=== PATIENT | female | born 1985 | race Caucasian/White ===

== ENCOUNTER 2016-05-12 00:12 | Emergency (ER) | payer MEDICAID ==
[~2016-05-12] VITALS: Ht 160 cm; Wt 51.0 kg
[~2016-05-12 00:12] MED LIST: DOXY100T PO; GABA300C3 PO; ULTR50TA PO
[2016-05-12 00:14] VITALS: BP 136/95; PULSE 138; RESP 20; TEMP 97.8; O2SAT 97
[2016-05-12] MEDS ORDERED: SODIUM CHLORIDE 0.9% FLUSH 5 ML FLUSH IVF PRN (01:15)
[2016-05-12] MEDS ORDERED: MORPHINE SULFATE 8 MG/ML INJ IV PUSH ONE (01:15)
[2016-05-12] MEDS ORDERED: TRAM50TA PO (01:27)
[2016-05-12] MEDS ORDERED: ALPR.5 PO (01:27)
[2016-05-12] MEDS ORDERED: GABA300C5 PO (01:27)
[2016-05-12 01:47] LABS: AUTOMATED NEUTROPHIL # 2.8 TH/MM3 (1.8-7.7); BASOPHIL # 0.1 TH/MM3 (0-0.2); EOSINOPHIL # 0.1 TH/MM3 (0-0.4); HEMATOCRIT 43.6 % (35.0-46.0); HEMO FLAGS DIFF FINAL; LYMPH % 41.7 % (9.0-44.0); LYMPHOCYTE # 2.7 TH/MM3 (1.0-4.8); MEAN CORPUSCULAR HEMOGLOBIN 30.9 PG (27.0-34.0); MEAN CORPUSCULAR HGB CONC 34.4 % (32.0-36.0); MONO % 11.9 % (0.0-8.0); NEUT % 43.4 % (16.0-70.0); PLATELET COUNT 148 TH/MM3 (150-450); RED BLOOD COUNT 4.85 MIL/MM3 (4.00-5.30); RED CELL DISTRIBUTION WIDTH 14.3 % (11.6-17.2); WHITE BLOOD COUNT 6.5 TH/MM3 (4.0-11.0)
[2016-05-12] MEDS ORDERED: LORazepam 2 MG/ML VIAL IV PUSH ONE (02:00)
[2016-05-12] MEDS ORDERED: SODIUM CHLOR 0.9% 1000 ML INJ 1,000 ML IV ONE ×2 (02:00)
--- NOTE | 2016-05-12 02:00 | PD ---
HPI Chief Complaint: Abdominal Pain Time Seen by Provider: 00:53 Travel History International Travel<30 days: No Contact w/Intl Traveler<30days: No Traveled to known affect area: No History of Present Illness HPI The patient is 31 years old and arrives here stating "my liver is shutting down. " She drinks at least 12 drink equivalents nightly. She has been doing this for at least past week and a half or so. She has generalized moderately severe abdominal pain. The onset has been gradual. She's had no fever. Appetite is decreased. In addition she states that she has not slept in a few days. PFSH Past Medical History Hx Anticoagulant Therapy: No Anxiety: Yes Depression: Yes Cancer: Yes (CERVICAL) Cardiovascular Problems: Yes Chemotherapy: No Cerebrovascular Accident: No Diabetes: No Dialysis: No (RESOLVED) Diminished Hearing: No Genitourinary: No Hepatitis: Yes Musculoskeletal: No Neurologic: No Psychiatric: Yes Respiratory: Yes (POST TRACH) Immunizations Current: Yes Renal Failure: No (RESOLVED) ?: Not LMP: 05/09/16 : 1 Para: 1 Past Surgical History Pacemaker: No Other Surgery: Yes (BENIGN CERVICAL CANCER, HX TRACH JUNE 2014, HX OF PEG TUBE, JUNE 22) Social History Alcohol Use: Yes (EXCESSIVELY FOR THE PAST MONTH) Tobacco Use: Yes (2 PPD) Substance Use: No (DENIES) Allergies-Medications (Allergen,Severity, Reaction): Coded Allergies: *MDRO Multi-Drug Resistant Organism (Unverified Adverse Reaction, Unknown , 05/12/16) MDR Pseudomonas and ESBL+ Klebsiella (KPC) in sputum 07/2014. ESBL+ Klebsiella (KPC) urine 06/2014. Reported Meds & Prescriptions Reported Meds & Active Scripts Active Reported Gabapentin 300 Mg Cap 300 Mg PO TID Tramadol (Tramadol HCl) 50 Mg Tab 50 Mg PO Q6H PRN Xanax (Alprazolam) 0.5 Mg Tab 0.5 Mg PO Q8H PRN Review of Systems Except as stated in HPI: all other systems reviewed are Neg Physical Exam Narrative GENERAL: Pleasant 31-year-old female no acute distress SKIN: Warm and dry. HEAD: Atraumatic. Normocephalic. EYES: Pupils equal and round. No scleral icterus. No injection or drainage. ENT: No nasal bleeding or discharge. Mucous membranes pink and moist. NECK: Trachea midline. No JVD. CARDIOVASCULAR: Tachycardia. Regular rhythm. RESPIRATORY: No accessory muscle use. Clear to auscultation. Breath sounds equal bilaterally. GASTROINTESTINAL: Soft. No focal tenderness. MUSCULOSKELETAL: No obvious deformities. No clubbing. No cyanosis. No edema. NEUROLOGICAL: Awake and alert. No obvious cranial nerve deficits. Motor grossly within normal limits. Normal speech. PSYCHIATRIC: Appropriate mood and affect; insight and judgment normal. Data Data Last Documented VS Vital Signs Date Time Temp Pulse Resp B/P Pulse Ox O2 Delivery O2 Flow Rate FiO2 05/12/16 00:14 97.8 138 20 136/95 97 Room Air Orders Complete Blood Count With Diff (05/12/16 01:12) Comprehensive Metabolic Panel (05/12/16 01:12) Lipase (05/12/16 01:12) Lactic Acid (05/12/16 01:12) Iv Access Insert/Monitor (05/12/16 01:12) Ecg Monitoring (05/12/16 01:12) Oximetry (05/12/16 01:12) Sodium Chloride 0.9% Flush (Ns Flush) (05/12/16 01:15) Morphine Inj (Morphine Inj) (05/12/16 01:15) Drug Screen, Random Urine (05/12/16 01:12) Alcohol (Ethanol) (05/12/16 01:12) Sodium Chlor 0.9% 1000 Ml Inj (Ns 1000 M (05/12/16 02:00) Sodium Chlor 0.9% 1000 Ml Inj (Ns 1000 M (05/12/16 02:00) Lorazepam Inj (Ativan Inj) (05/12/16 02:00) Ed Urine Pregnancytest Poc (05/12/16 02:45) Labs Laboratory Tests Test 05/12/16 05/12/16 01:32 01:40 White Blood Count 6.5 TH/MM3 Red Blood Count 4.85 MIL/MM3 Hemoglobin 15.0 GM/DL Hematocrit 43.6 % Mean Corpuscular Volume 90.0 FL Mean Corpuscular Hemoglobin 30.9 PG Mean Corpuscular Hemoglobin 34.4 % Concent Red Cell Distribution Width 14.3 % Platelet Count 148 TH/MM3 Mean Platelet Volume 7.4 FL Neutrophils (%) (Auto) 43.4 % Lymphocytes (%) (Auto) 41.7 % Monocytes (%) (Auto) 11.9 % Eosinophils (%) (Auto) 2.0 % Basophils (%) (Auto) 1.0 % Neutrophils # (Auto) 2.8 TH/MM3 Lymphocytes # (Auto) 2.7 TH/MM3 Monocytes # (Auto) 0.8 TH/MM3 Eosinophils # (Auto) 0.1 TH/MM3 Basophils # (Auto) 0.1 TH/MM3 CBC Comment DIFF FINAL Differential Comment Sodium Level 141 MEQ/L Potassium Level 3.9 MEQ/L Chloride Level 104 MEQ/L Carbon Dioxide Level 25.5 MEQ/L Anion Gap 12 MEQ/L Blood Urea Nitrogen 4 MG/DL Creatinine 0.59 MG/DL Estimat Glomerular Filtration 120 ML/MIN Rate Random Glucose 78 MG/DL Lactic Acid Level 1.8 mmol/L Calcium Level 8.5 MG/DL Total Bilirubin 0.5 MG/DL Aspartate Amino Transf 63 U/L (AST/SGOT) Alanine Aminotransferase 34 U/L (ALT/SGPT) Alkaline Phosphatase 58 U/L Total Protein 7.4 GM/DL Albumin 3.8 GM/DL Lipase 261 U/L Ethyl Alcohol Level 284 MG/DL Urine Opiates Screen NEG Urine Barbiturates Screen NEG Urine Amphetamines Screen NEG Urine Benzodiazepines Screen NEG Urine Cocaine Screen NEG Urine Cannabinoids Screen NEG MDM Medical Decision Making Medical Screen Exam Complete: Yes Emergency Medical Condition: Yes Medical Record Reviewed: Yes Differential Diagnosis Constipation, Gastritis, Acute Cholecystitis, Biliary Colic, Pancreatitis, BUENO , Hepatitis, Bowel Obstruction, Cystitis, Mesenteric Ischemia, AAA, Appendicitis , Renal Stone/Hydronephrosis, GERD, perforated viscous Narrative Course CBC & BMP Diagram 05/12/16 01:32 LFTs normal Lactic acid 1.8 Lipase 261 Toxicology negative Alcohol 284 Patient has no significant laboratory abnormality. Her heart rate has improved to the 80s. Upon reassessment at 2:48 AM the patient is resting comfortably and feels better, is alert and in no distress. The patients results and examination findings were discussed. The repeat examination is unremarkable and benign. The history, exam, diagnostic testing, and current condition do not suggest any significant pathology to warrant further testing, continued ED treatment, admission, or surgical evaluation at this point. The vital signs have been stable. The patient does not have uncontrollable pain, intractable vomiting, or other significant symptoms. The patient's condition is stable and appropriate for discharge. The patient will pursue further outpatient evaluation with a primary care physician or other designated or consulting physician as indicated in the discharge instructions. The patient expressed understanding and was agreeable with this plan. Diagnosis Primary Impression: Abdominal pain Qualified Code: R10.9 - Abdominal pain, unspecified location Additional Impression: Alcohol abuse Referrals: Deniz Guzman MD 2 days Additional Instructions: You have a choice when it comes to health care, and we are glad that you chose [facility]. Hopefully, we have met your expectations on today's visit. You are welcome to return to [facility] at any time, as we are committed to meeting the health care needs of our community. Med/Other Pt SpecificInfo: No Change to Meds Disposition: 01 DISCHARGE HOME Condition: Mateo Young MD May 12, 2016 02:00
[2016-05-12 02:05] LABS: ANION GAP 12 MEQ/L (5-15); AST (GOT) 63 U/L (15-37); BICARBONATE 25.5 MEQ/L (21.0-32.0); BLOOD UREA NITROGEN 4 MG/DL (7-18); CHLORIDE 104 MEQ/L (98-107); GLOMERULAR FILTRATION RATE 120 ML/MIN (>89); POTASSIUM 3.9 MEQ/L (3.5-5.1); SODIUM (NA) 141 MEQ/L (136-145)
[2016-05-12 02:08] LABS: ALKALINE PHOSPHATASE 58 U/L (45-117); ALT (GPT) 34 U/L (10-53); TOTAL BILIRUBIN ADULT 0.5 MG/DL (0.2-1.0)
[2016-05-12 02:19] LABS: AMPHETAMINE, URINE NEG (NEG); BARBITURATES, URINE NEG (NEG); COCAINE, URINE NEG (NEG)
== END 2016-05-12 03:21 | disposition home or self-care (01) ==
LOC: NEPC 00:12
DX: R10.9 Unspecified abdominal pain (principal); F10.10 Alcohol abuse, uncomplicated; K75.9 Inflammatory liver disease, unspecified; F17.200 Nicotine dependence, unspecified, uncomplicated; Z85.41 Personal history of malignant neoplasm of cervix uteri; Z86.79 Personal history of other diseases of the circulatory system; Z86.59 Personal history of other mental and behavioral disorders; Z87.09 Personal history of other diseases of the respiratory system
CPT/HCPCS: 80053; 80307; 80320; 83605; 83690; 85025; 96374; 99284; J2270; J7030

== ENCOUNTER 2017-05-11 19:12 | Emergency (ER) | payer SELFPAY ==
[2017-05-11] VITALS (7 sets, daily range): BP systolic 117–136; BP diastolic 72–80; PULSE 68–84; RESP 16–20; TEMP 98.3–98.4; O2SAT 100
[~2017-05-11 19:12] MED LIST changes: +ALPR.5 PO; -DOXY100T PO; -GABA300C3 PO; +GABA300C5 PO; +TRAM50TA PO; -ULTR50TA PO
[2017-05-11] MEDS ORDERED: SODIUM CHLOR 0.9% 1000 ML INJ 1,000 ML IV SCH (19:36)
--- NOTE | 2017-05-11 19:41 | PD ---
HPI Chief Complaint: Alcohol/Drug Intoxication Time Seen by Provider: 19:36 Travel History International Travel<30 days: No Contact w/Intl Traveler<30days: No Traveled to known affect area: No History of Present Illness HPI The patient is a 32-year-old female alcoholic that was on a binge drinking for about a week but her last alcohol was about 3 days ago. She was in long-term. She has multiple complaints the worst ones being anxiety and generalized myalgias. The vomiting has subsided several days ago. She states she is still nauseated. She does have a history of pancreatitis. She complains of sharp, pleuritic chest pain. She does smoke one pack a day. PFSH Past Medical History Hx Anticoagulant Therapy: No Anxiety: Yes Depression: Yes Cancer: Yes (CERVICAL) Cardiovascular Problems: Yes Chemotherapy: No Cerebrovascular Accident: No Diabetes: No Dialysis: No (RESOLVED) Diminished Hearing: No Genitourinary: No Hepatitis: Yes Musculoskeletal: No Neurologic: No Psychiatric: Yes Respiratory: Yes (POST TRACH) Immunizations Current: Yes Renal Failure: No (RESOLVED) Tetanus Vaccination: Unknown Influenza Vaccination: No ?: Not LMP: 05/08/17 : 1 Para: 1 Past Surgical History Pacemaker: No Other Surgery: Yes (BENIGN CERVICAL CANCER, HX TRACH JUNE 2014, HX OF PEG TUBE, JUNE 22) Social History Alcohol Use: Yes ( states relapsed went to long-term for 2 days out today 05/11/17) Tobacco Use: Yes (1 PPD) Substance Use: No (DENIES) Allergies-Medications (Allergen,Severity, Reaction): Coded Allergies: *MDRO Multi-Drug Resistant Organism (Unverified Adverse Reaction, Unknown , 05/11/17) MDR Pseudomonas and ESBL+ Klebsiella (KPC) in sputum 07/2014. ESBL+ Klebsiella (KPC) urine 06/2014. Reported Meds & Prescriptions Reported Meds & Active Scripts Active Reported Gabapentin 300 Mg Cap 300 Mg PO TID Tramadol (Tramadol HCl) 50 Mg Tab 50 Mg PO Q6H PRN Xanax (Alprazolam) 0.5 Mg Tab 0.5 Mg PO Q8H PRN Review of Systems Except as stated in HPI: all other systems reviewed are Neg Physical Exam Narrative GENERAL: The patient is alert, oriented 3 in minimal apparent distress except for her anxiety and myalgias. Her vital signs are normal. SKIN: Focused skin assessment warm/dry. HEAD: Atraumatic. Normocephalic. EYES: Pupils equal and round. No scleral icterus. No injection or drainage. ENT: No nasal bleeding or discharge. Mucous membranes pink and moist. NECK: Trachea midline. No JVD. CARDIOVASCULAR: Regular rate and rhythm. No murmur appreciated. RESPIRATORY: No accessory muscle use. Clear to auscultation. Breath sounds equal bilaterally. GASTROINTESTINAL: Abdomen soft, non-tender, nondistended. Hepatic and splenic margins not palpable. MUSCULOSKELETAL: No obvious deformities. No clubbing. No cyanosis. No edema. NEUROLOGICAL: Awake and alert. No obvious cranial nerve deficits. Motor grossly within normal limits. Normal speech. PSYCHIATRIC: The patient appears anxious; insight and judgment normal. Data Data Last Documented VS Vital Signs Date Time Temp Pulse Resp B/P (MAP) Pulse Ox O2 Delivery O2 Flow Rate FiO2 05/11/17 20:20 16 05/11/17 19:18 98.3 84 136/72 (93) 100 Orders Orders Complete Blood Count With Diff (05/11/17 19:36) Comprehensive Metabolic Panel (05/11/17 19:36) Lipase (05/11/17 19:36) Urinalysis - C+S If Indicated (05/11/17 19:36) Iv Access Insert/Monitor (05/11/17 19:36) Ecg Monitoring (05/11/17 19:36) Oximetry (05/11/17 19:36) Sodium Chlor 0.9% 1000 Ml Inj (Ns 1000 M (05/11/17 19:36) Sodium Chloride 0.9% Flush (Ns Flush) (05/11/17 19:45) Ed Urine Pregnancytest Poc (05/11/17 19:36) Thiamine Inj (Thiamine Inj) (05/11/17 19:45) Magnesium (Mg) (05/11/17 19:36) Ondansetron Inj (Zofran Inj) (05/11/17 19:45) Ketorolac Inj (Toradol Inj) (05/11/17 20:00) Labs Laboratory Tests Test 05/11/17 19:47 05/11/17 20:00 White Blood Count 8.6 TH/MM3 Red Blood Count 4.50 MIL/MM3 Hemoglobin 14.1 GM/DL Hematocrit 41.3 % Mean Corpuscular Volume 91.6 FL Mean Corpuscular Hemoglobin 31.4 PG Mean Corpuscular Hemoglobin Concent 34.2 % Red Cell Distribution Width 13.3 % Platelet Count 251 TH/MM3 Mean Platelet Volume 7.6 FL Neutrophils (%) (Auto) 54.1 % Lymphocytes (%) (Auto) 37.0 % Monocytes (%) (Auto) 6.3 % Eosinophils (%) (Auto) 1.8 % Basophils (%) (Auto) 0.8 % Neutrophils # (Auto) 4.6 TH/MM3 Lymphocytes # (Auto) 3.2 TH/MM3 Monocytes # (Auto) 0.5 TH/MM3 Eosinophils # (Auto) 0.2 TH/MM3 Basophils # (Auto) 0.1 TH/MM3 CBC Comment DIFF FINAL Differential Comment Blood Urea Nitrogen 9 MG/DL Creatinine 0.69 MG/DL Random Glucose 99 MG/DL Total Protein 7.0 GM/DL Albumin 3.6 GM/DL Calcium Level 8.2 MG/DL Magnesium Level 1.8 MG/DL Alkaline Phosphatase 59 U/L Aspartate Amino Transf (AST/SGOT) 33 U/L Alanine Aminotransferase (ALT/SGPT) 21 U/L Total Bilirubin 0.7 MG/DL Sodium Level 142 MEQ/L Potassium Level 3.3 MEQ/L Chloride Level 108 MEQ/L Carbon Dioxide Level 25.1 MEQ/L Anion Gap 9 MEQ/L Estimat Glomerular Filtration Rate 99 ML/MIN Lipase 153 U/L Urine Color VIVIAN Urine Turbidity CLEAR Urine pH 6.5 Urine Specific [place] GREATER THAN 1.035 Urine Protein TRACE mg/dL Urine Glucose (UA) NEG mg/dL Urine Ketones TRACE mg/dL Urine Occult Blood NEG Urine Nitrite NEG Urine Bilirubin NEG Urine Leukocyte Esterase NEG Urine WBC 0-2 /hpf Urine Squamous Epithelial Cells 0-5 /hpf Urine Calcium Oxalate Crystals MANY /hpf Urine Mucus MOD /lpf Microscopic Urinalysis Comment CULT NOT INDICATED MDM Medical Decision Making Medical Screen Exam Complete: Yes Emergency Medical Condition: Yes Medical Record Reviewed: Yes Interpretation(s) The CBC is normal. The complete metabolic profile shows potassium 3.3 and calcium 8.2 but is otherwise unremarkable. The lipase is normal. Urinalysis shows vivian color, specific gravity greater than 1.035, trace ketones, many calcium oxalate crystals but is otherwise normal and culture is not indicated. Differential Diagnosis Dehydration, alcohol withdrawal, pancreatitis Narrative Course The patient does have some alcohol withdrawal symptoms. She also has dehydration as reflected by the high urine specific gravity ketones in the urine. She will need to increase her liquid intake. She should follow-up with her primary care physician. She is given Zofran for nausea which has worked well here for her nausea. Additional Instructions: If you need help standing off of alcohol, use [employer]. Don't drink any more alcohol, you do not want to go through this again. Drink plenty of liquids and follow-up with your primary care physician. Zofran is one tablet every 6 hours as needed. If this is not enough you can take a second tablet. Med/Other Pt SpecificInfo: Prescription(s) given Scripts Ondansetron (Zofran) 4 Mg Tab 4 MG PO Q6HR Y for NAUSEA OR VOMITING, #28 TAB 0 Refills Prov: Kirby Aguilar MD 05/11/17 Disposition: 01 DISCHARGE HOME Condition: Stable Kirby Aguilar MD May 11, 2017 19:41
[2017-05-11] MEDS ORDERED: ONDANSETRON HCL 4 MG/2 ML VIAL IV ONE (19:45)
[2017-05-11] MEDS ORDERED: SODIUM CHLORIDE 0.9% FLUSH 10 ML FLUSH IV FLUSH PRN (19:45)
[2017-05-11] MEDS ORDERED: THIAMINE INJ 100 MG in SODIUM CHLORIDE 0.9% INJ 100 ML IV ONE (19:45)
[2017-05-11 19:59] LABS: AUTOMATED NEUTROPHIL # 4.6 TH/MM3 (1.8-7.7); BASOPHIL # 0.1 TH/MM3 (0-0.2); BASOPHIL % 0.8 % (0.0-2.0); EOSINOPHIL # 0.2 TH/MM3 (0-0.4); EOSINOPHIL % 1.8 % (0.0-4.0); HEMATOCRIT 41.3 % (35.0-46.0); HEMOGLOBIN 14.1 GM/DL (11.6-15.3); LYMPHOCYTE # 3.2 TH/MM3 (1.0-4.8); MEAN CELL VOLUME 91.6 FL (80.0-100.0); MEAN CORPUSCULAR HEMOGLOBIN 31.4 PG (27.0-34.0); MEAN CORPUSCULAR HGB CONC 34.2 % (32.0-36.0); MEAN PLATELET VOLUME 7.6 FL (7.0-11.0); MONO % 6.3 % (0.0-8.0); MONOCYTE # 0.5 TH/MM3 (0-0.9); NEUT % 54.1 % (16.0-70.0); PLATELET COUNT 251 TH/MM3 (150-450); RED CELL DISTRIBUTION WIDTH 13.3 % (11.6-17.2); WHITE BLOOD COUNT 8.6 TH/MM3 (4.0-11.0)
[2017-05-11] MEDS ORDERED: KETOROLAC TROMETHAMINE 60 MG/2 ML (IM) VIAL IVP ONE (20:00)
[2017-05-11 20:06] LABS: CHLORIDE 108 MEQ/L (98-107); SODIUM (NA) 142 MEQ/L (136-145)
[2017-05-11 20:10] LABS: ALBUMIN 3.6 GM/DL (3.4-5.0); BICARBONATE 25.1 MEQ/L (21.0-32.0); CALCIUM 8.2 MG/DL (8.5-10.1); GLUCOSE,RANDOM 99 MG/DL (74-106); LIPASE 153 U/L (73-393); MAGNESIUM 1.8 MG/DL (1.5-2.5)
[2017-05-11 20:11] LABS: BLOOD UREA NITROGEN 9 MG/DL (7-18)
[2017-05-11 20:13] LABS: ALT (GPT) 21 U/L (10-53); AST (GOT) 33 U/L (15-37); CREATININE 0.69 MG/DL (0.50-1.00); GLOMERULAR FILTRATION RATE 99 ML/MIN (>89)
[2017-05-11 20:15] LABS: TOTAL BILIRUBIN ADULT 0.7 MG/DL (0.2-1.0)
[2017-05-11 20:16] LABS: ALKALINE PHOSPHATASE 59 U/L (45-117)
[2017-05-11 20:29] LABS: BLOOD, URINE NEG (NEG); GLUCOSE,URINE NEG (NEG); KETONE, URINE TRACE mg/dL (NEG); NITRITE,URINE NEG (NEG); PH, URINE 6.5 (5.0-8.5); URINE LEUKOCYTE ESTERASE NEG (NEG)
[2017-05-11 20:36] LABS: BILIRUBIN, URINE NEG (NEG)
[2017-05-11 20:37] LABS: URINE COLOR AMBER (YELLW/STRAW)
[2017-05-11 20:38] LABS: CALCIUM OXALATE CRYSTALS,URINE MANY /hpf; MUCUS URINE MOD /lpf (OCC); SQUAMOUS EPITHELIAL CELL URINE 0-5 /hpf (0-5); WBC, URINE 0-2 /hpf (0-5)
[2017-05-11] MEDS ORDERED: ZOFR4TAB PO (21:01)
== END 2017-05-11 21:35 | disposition home or self-care (01) ==
LOC: PHED 19:12
DX: F10.239 Alcohol dependence with withdrawal, unspecified (principal); E86.0 Dehydration; R11.0 Nausea; F41.9 Anxiety disorder, unspecified; M79.1 Myalgia; F32.9 Major depressive disorder, single episode, unspecified; F17.200 Nicotine dependence, unspecified, uncomplicated; Z86.19 Personal history of other infectious and parasitic diseases; Z79.899 Other long term (current) drug therapy
CPT/HCPCS: 80053; 81001; 83690; 83735; 84703; 85025; 96365; 96372; 96375; 99284; J1885; J2405; J3411; J7030

== ENCOUNTER 2017-07-18 22:52 | Emergency (ER) | payer MEDICAID, OTHER ==
[~2017-07-18] VITALS: Ht 157.5 cm; Wt 50.0 kg
[~2017-07-18 22:52] MED LIST changes: +ZOFR4TAB PO
[2017-07-18 23:07] VITALS: BP 133/67; PULSE 83; RESP 16; TEMP 98.7; O2SAT 99
[2017-07-18 23:13] VITALS: RESP 16; O2SAT 99
[2017-07-18] MEDS ORDERED: SODIUM CHLOR 0.9% 1000 ML INJ 1,000 ML IV ONE (23:15)
--- NOTE | 2017-07-18 23:17 | PD ---
HPI Chief Complaint: Psychiatric Symptoms Time Seen by Provider: 23:02 Travel History International Travel<30 days: No Contact w/Intl Traveler<30days: No Traveled to known affect area: No History of Present Illness HPI 32-year-old white female presents emergency department under [place] act by PD. Patient is combative and has to be restrained by PD. Family members had called police advising them that she had taken an overdose of medications. The patient here admitted to PD that she had taken unknown pills, drank alcohol and cough syrup. She admits to feeling depressed and having suicidal ideation. She also had stated that she would kill anyone who had called 911. The patient here is noncompliant. She is not allowing us to the patient is placed in four- point restraints. She is combative and spitting. She has a mask on. The patient is under the influence of drugs and alcohol. A complete history is unobtainable at this time. She is uncooperative. PFSH Past Medical History Hx Anticoagulant Therapy: No Anxiety: Yes Depression: Yes Cancer: Yes (CERVICAL) Cardiovascular Problems: Yes Chemotherapy: No Cerebrovascular Accident: No Diabetes: No Dialysis: No (RESOLVED) Diminished Hearing: No Genitourinary: No Hepatitis: Yes Musculoskeletal: No Neurologic: No Psychiatric: Yes Respiratory: Yes (POST TRACH) Immunizations Current: Yes Renal Failure: No (RESOLVED) ?: Not : 1 Para: 1 Past Surgical History Pacemaker: No Other Surgery: Yes (BENIGN CERVICAL CANCER, HX TRACH JUNE 2014, HX OF PEG TUBE, JUNE 22) Social History Alcohol Use: Yes ( states relapsed went to skilled nursing for 2 days out today 05/11/17) Tobacco Use: Yes (1 PPD) Substance Use: Yes Allergies-Medications (Allergen,Severity, Reaction): Coded Allergies: *MDRO Multi-Drug Resistant Organism (Unverified Adverse Reaction, Unknown , 05/11/17) MDR Pseudomonas and ESBL+ Klebsiella (KPC) in sputum 07/2014. ESBL+ Klebsiella (KPC) urine 06/2014. Reported Meds & Prescriptions Reported Meds & Active Scripts Active Zofran (Ondansetron HCl) 4 Mg Tab 4 Mg PO Q6HR PRN Reported Gabapentin 300 Mg Cap 300 Mg PO TID Tramadol (Tramadol HCl) 50 Mg Tab 50 Mg PO Q6H PRN Xanax (Alprazolam) 0.5 Mg Tab 0.5 Mg PO Q8H PRN Review of Systems ROS Limitations: Intoxication, Uncooperative, Combative Physical Exam Narrative GENERAL: Well-nourished, well-developed patient. Patient is uncooperative. She has to be restrained. She is spitting. The mask is applied. Patient is in four-point restraints due to her combative nature. Patient appears to be under the influence of alcohol drugs. SKIN: Warm and dry. HEAD: Normocephalic and atraumatic. EYES: No scleral icterus. No injection or drainage. ENT: No nasal drainage noted. Mucous membranes pink. Airway patent. NECK: Supple, trachea midline. Moves head freely without obvious discomfort. CARDIOVASCULAR: Regular tachycardic rate and rhythm without murmurs, gallops, or rubs. RESPIRATORY: Breath sounds equal bilaterally. No accessory muscle use. GASTROINTESTINAL: Abdomen soft, non-tender, nondistended. EXTREMITIES: No cyanosis or edema. BACK: Nontender without obvious deformity. No CVA tenderness. NEURO: Patient is alert and oriented. no sensorimotor deficits. Nonfocal. Slurred speech. PSYCH: No delusions. No auditory or visual hallucinations. Data Data Last Documented VS Vital Signs Date Time Temp Pulse Resp B/P (MAP) Pulse Ox O2 Delivery O2 Flow Rate FiO2 07/18/17:13 16 99 Room Air 07/18/17 23:07 98.7 83 133/67 (89) Orders Orders Complete Blood Count With Diff (07/18/17 23:02) Comprehensive Metabolic Panel (07/18/17 23:02) Thyroid Stimulating Hormone (07/18/17 23:02) Oximetry (07/18/17 23:02) Iv Access Insert/Monitor (07/18/17 23:02) Ecg Monitoring (07/18/17 23:02) Beta Hcg (Quant/Titer) (07/18/17 23:02) Psych Screen (07/18/17 23:02) Drug Screen, Random Urine (07/18/17 23:02) Alcohol (Ethanol) (07/18/17 23:02) Salicylates (Aspirin) (07/18/17 23:02) Tylenol (Acetaminophen) (07/18/17 23:02) Sodium Chlor 0.9% 1000 Ml Inj (Ns 1000 M (07/18/17 23:15) Restraints Violent (3/13/18 23:17) Labs Laboratory Tests Test 07/18/17 23:10 White Blood Count 13.6 TH/MM3 Red Blood Count 4.84 MIL/MM3 Hemoglobin 15.0 GM/DL Hematocrit 43.4 % Mean Corpuscular Volume 89.8 FL Mean Corpuscular Hemoglobin 31.0 PG Mean Corpuscular Hemoglobin Concent 34.6 % Red Cell Distribution Width 12.7 % Platelet Count 364 TH/MM3 Mean Platelet Volume 7.5 FL Neutrophils (%) (Auto) 55.3 % Lymphocytes (%) (Auto) 40.0 % Monocytes (%) (Auto) 3.7 % Eosinophils (%) (Auto) 0.5 % Basophils (%) (Auto) 0.5 % Neutrophils # (Auto) 7.5 TH/MM3 Lymphocytes # (Auto) 5.4 TH/MM3 Monocytes # (Auto) 0.5 TH/MM3 Eosinophils # (Auto) 0.1 TH/MM3 Basophils # (Auto) 0.1 TH/MM3 CBC Comment AUTO DIFF Differential Total Cells Counted 100 Neutrophils % (Manual) 67 % Band Neutrophils % 1 % Lymphocytes % 29 % Monocytes % 3 % Neutrophils # (Manual) 9.2 TH/MM3 Differential Comment FINAL DIFF MANUAL Platelet Estimate NORMAL Platelet Morphology Comment NORMAL Red Cell Morphology Comment NORMAL Blood Urea Nitrogen 9 MG/DL Creatinine 0.78 MG/DL Random Glucose 90 MG/DL Total Protein 7.6 GM/DL Albumin 4.0 GM/DL Calcium Level 8.2 MG/DL Alkaline Phosphatase 77 U/L Aspartate Amino Transf (AST/SGOT) 59 U/L Alanine Aminotransferase (ALT/SGPT) 28 U/L Total Bilirubin 0.4 MG/DL Sodium Level 144 MEQ/L Potassium Level 4.2 MEQ/L Chloride Level 107 MEQ/L Carbon Dioxide Level 28.3 MEQ/L Anion Gap 9 MEQ/L Estimat Glomerular Filtration Rate 86 ML/MIN Thyroid Stimulating Hormone 3rd Gen 1.030 uIU/ML Human Chorionic Gonadotropin, Quant LESS THAN 1 MIU/ML Salicylates Level 2.8 MG/DL Urine Opiates Screen NEG Acetaminophen Level LESS THAN 2.0 MCG/ML Urine Barbiturates Screen NEG Urine Amphetamines Screen NEG Urine Benzodiazepines Screen POS Urine Cocaine Screen NEG Urine Cannabinoids Screen NEG Ethyl Alcohol Level 404 MG/DL MDM Medical Decision Making Medical Screen Exam Complete: Yes Emergency Medical Condition: Yes Medical Record Reviewed: Yes Interpretation(s) Laboratory Tests Test 3/13/18 23:10 White Blood Count 13.6 TH/MM3 Red Blood Count 4.84 MIL/MM3 Hemoglobin 15.0 GM/DL Hematocrit 43.4 % Mean Corpuscular Volume 89.8 FL Mean Corpuscular Hemoglobin 31.0 PG Mean Corpuscular Hemoglobin Concent 34.6 % Red Cell Distribution Width 12.7 % Platelet Count 364 TH/MM3 Mean Platelet Volume 7.5 FL Neutrophils (%) (Auto) 55.3 % Lymphocytes (%) (Auto) 40.0 % Monocytes (%) (Auto) 3.7 % Eosinophils (%) (Auto) 0.5 % Basophils (%) (Auto) 0.5 % Neutrophils # (Auto) 7.5 TH/MM3 Lymphocytes # (Auto) 5.4 TH/MM3 Monocytes # (Auto) 0.5 TH/MM3 Eosinophils # (Auto) 0.1 TH/MM3 Basophils # (Auto) 0.1 TH/MM3 CBC Comment AUTO DIFF Differential Total Cells Counted 100 Neutrophils % (Manual) 67 % Band Neutrophils % 1 % Lymphocytes % 29 % Monocytes % 3 % Neutrophils # (Manual) 9.2 TH/MM3 Differential Comment FINAL DIFF MANUAL Platelet Estimate NORMAL Platelet Morphology Comment NORMAL Red Cell Morphology Comment NORMAL Blood Urea Nitrogen 9 MG/DL Creatinine 0.78 MG/DL Random Glucose 90 MG/DL Total Protein 7.6 GM/DL Albumin 4.0 GM/DL Calcium Level 8.2 MG/DL Alkaline Phosphatase 77 U/L Aspartate Amino Transf (AST/SGOT) 59 U/L Alanine Aminotransferase (ALT/SGPT) 28 U/L Total Bilirubin 0.4 MG/DL Sodium Level 144 MEQ/L Potassium Level 4.2 MEQ/L Chloride Level 107 MEQ/L Carbon Dioxide Level 28.3 MEQ/L Anion Gap 9 MEQ/L Estimat Glomerular Filtration Rate 86 ML/MIN Thyroid Stimulating Hormone 3rd Gen 1.030 uIU/ML Human Chorionic Gonadotropin, Quant LESS THAN 1 MIU/ML Salicylates Level 2.8 MG/DL Urine Opiates Screen NEG Acetaminophen Level LESS THAN 2.0 MCG/ML Urine Barbiturates Screen NEG Urine Amphetamines Screen NEG Urine Benzodiazepines Screen POS Urine Cocaine Screen NEG Urine Cannabinoids Screen NEG Ethyl Alcohol Level 404 MG/DL Differential Diagnosis MDM: High Differential diagnoses: Schizophrenia, schizoaffective disorder, bipolar, anxiety, depression, adjustment reaction, mood disorder NOS, ODD, depressive disorder NOS, dementia, dementia with agitation, psychosis NOS, substance induced mood disorder, DMDD, Asperger syndrome, infection,electrolyte abnormality, malingering. Narrative Course Mental health screening discussed with the patient. Psychiatric screen ordered. Patient is placed in violent restraints. She will be allowed to sober up here. I do not believe giving any additional medications would be in the patient's best interest. There is history of alcohol and substance abuse. She had alleged a possible overdose. She will be monitored here in the ER. She is placed on a cardiac sonographer as well as monitor. She will be given 1 L bolus of normal saline. Basic laboratory tests have been ordered for medical clearance Patient's EtOH is 404. She is positive for benzos. Rest of her drug screen is negative. The patient will sleep it off here in the ER and will be evaluated by the psychiatrist in the morning. This medical clearance for psychiatric admission, alcohol intoxication, alcohol abuse Diagnosis Primary Impression: Medical clearance for psychiatric admission Additional Impressions: Alcohol intoxication Alcohol abuse Condition: Stable Juan Miguel Bernabe Jul 18, 2017 23:17
[2017-07-18 23:19] LABS: WHITE BLOOD COUNT 13.6 TH/MM3 (4.0-11.0)
[2017-07-18 23:20] LABS: AUTOMATED NEUTROPHIL # 7.5 TH/MM3 (1.8-7.7); BASOPHIL # 0.1 TH/MM3 (0-0.2); BASOPHIL % 0.5 % (0.0-2.0); EOSINOPHIL # 0.1 TH/MM3 (0-0.4); EOSINOPHIL % 0.5 % (0.0-4.0); HEMATOCRIT 43.4 % (35.0-46.0); LYMPHOCYTE # 5.4 TH/MM3 (1.0-4.8); MEAN CELL VOLUME 89.8 FL (80.0-100.0); MEAN CORPUSCULAR HGB CONC 34.6 % (32.0-36.0); MEAN PLATELET VOLUME 7.5 FL (7.0-11.0); MONO % 3.7 % (0.0-8.0); MONOCYTE # 0.5 TH/MM3 (0-0.9); NEUT % 55.3 % (16.0-70.0); PLATELET COUNT 364 TH/MM3 (150-450); RED BLOOD COUNT 4.84 MIL/MM3 (4.00-5.30); RED CELL DISTRIBUTION WIDTH 12.7 % (11.6-17.2)
[2017-07-18 23:37] LABS: ACETAMINOPHEN LESS THAN 2.0 MCG/ML (10.0-30.0); ALT (GPT) 28 U/L (10-53); AST (GOT) 59 U/L (15-37); BICARBONATE 28.3 MEQ/L (21.0-32.0); BLOOD UREA NITROGEN 9 MG/DL (7-18); CALCIUM 8.2 MG/DL (8.5-10.1); CHLORIDE 107 MEQ/L (98-107); CREATININE 0.78 MG/DL (0.50-1.00); GLOMERULAR FILTRATION RATE 86 ML/MIN (>89); GLUCOSE,RANDOM 90 MG/DL (74-106); SODIUM (NA) 144 MEQ/L (136-145)
[2017-07-18 23:47] LABS: ALKALINE PHOSPHATASE 77 U/L (45-117); TOTAL BILIRUBIN ADULT 0.4 MG/DL (0.2-1.0); TOTAL PROTEIN 7.6 GM/DL (6.4-8.2)
[2017-07-19 01:04] LABS: BANDS 1 % (0-6); LYMPHOCYTES 29 % (9-44); MONOCYTES 3 % (0-8); NEUTROPHIL # MANUAL DIFF 9.2 TH/MM3 (1.8-7.7); POLYS (SEG NEUTROPHILS) 67 % (16-70)
[2017-07-19] MEDS ORDERED: HALOPERIDOL LACTATE 5 MG/ML AMP IM ONE (04:30)
[2017-07-19] MEDS ORDERED: LORazepam 1 MG TAB PO ONE (11:30)
[2017-07-19] MEDS ORDERED: ONDANSETRON ODT 4 MG TAB PO ONE (11:30)
[2017-07-19 12:57] VITALS: BP 112/58; PULSE 95; RESP 16; O2SAT 98
[2017-07-19] MEDS ORDERED: GABAPENTIN 300 MG CAP PO SCH (13:00)
[2017-07-19 14:40] VITALS: BP 115/60; PULSE 102; RESP 16; TEMP 98.4; O2SAT 99
--- NOTE | 2017-07-19 17:00 | PD ---
Physical Exam Date Seen by Provider: Jul 19, 2017 Time Seen by Provider: 16:56 Data Data Last Documented VS Vital Signs Date Time Temp Pulse Resp B/P (MAP) Pulse Ox O2 Delivery O2 Flow Rate FiO2 07/19/17 16:47 07/19/17 14:40 98.4 102 16 99 Room Air Orders Orders Complete Blood Count With Diff (07/18/17 23:02) Comprehensive Metabolic Panel (07/18/17 23:02) Thyroid Stimulating Hormone (07/18/17 23:02) Oximetry (07/18/17 23:02) Iv Access Insert/Monitor (07/18/17 23:02) Ecg Monitoring (07/18/17 23:02) Beta Hcg (Quant/Titer) (07/18/17 23:02) Psych Screen (07/18/17 23:02) Drug Screen, Random Urine (07/18/17 23:02) Alcohol (Ethanol) (07/18/17 23:02) Salicylates (Aspirin) (07/18/17 23:02) Tylenol (Acetaminophen) (07/18/17 23:02) Sodium Chlor 0.9% 1000 Ml Inj (Ns 1000 M (07/18/17 23:15) Restraints Violent (07/18/17 23:17) Haloperidol Inj (Haldol Inj) (07/19/17 04:30) Diet Regular Basic (07/19/17 Breakfast) Lorazepam (Ativan) (07/19/17 11:30) Gabapentin (Neurontin) (07/19/17 13:00) Ondansetron Odt (Zofran Odt) (07/19/17 11:30) Ed Discharge Order (07/19/17 16:56) Labs Laboratory Tests Test 07/18/17 23:10 White Blood Count 13.6 TH/MM3 Red Blood Count 4.84 MIL/MM3 Hemoglobin 15.0 GM/DL Hematocrit 43.4 % Mean Corpuscular Volume 89.8 FL Mean Corpuscular Hemoglobin 31.0 PG Mean Corpuscular Hemoglobin Concent 34.6 % Red Cell Distribution Width 12.7 % Platelet Count 364 TH/MM3 Mean Platelet Volume 7.5 FL Neutrophils (%) (Auto) 55.3 % Lymphocytes (%) (Auto) 40.0 % Monocytes (%) (Auto) 3.7 % Eosinophils (%) (Auto) 0.5 % Basophils (%) (Auto) 0.5 % Neutrophils # (Auto) 7.5 TH/MM3 Lymphocytes # (Auto) 5.4 TH/MM3 Monocytes # (Auto) 0.5 TH/MM3 Eosinophils # (Auto) 0.1 TH/MM3 Basophils # (Auto) 0.1 TH/MM3 CBC Comment AUTO DIFF Differential Total Cells Counted 100 Neutrophils % (Manual) 67 % Band Neutrophils % 1 % Lymphocytes % 29 % Monocytes % 3 % Neutrophils # (Manual) 9.2 TH/MM3 Differential Comment FINAL DIFF MANUAL Platelet Estimate NORMAL Platelet Morphology Comment NORMAL Red Cell Morphology Comment NORMAL Blood Urea Nitrogen 9 MG/DL Creatinine 0.78 MG/DL Random Glucose 90 MG/DL Total Protein 7.6 GM/DL Albumin 4.0 GM/DL Calcium Level 8.2 MG/DL Alkaline Phosphatase 77 U/L Aspartate Amino Transf (AST/SGOT) 59 U/L Alanine Aminotransferase (ALT/SGPT) 28 U/L Total Bilirubin 0.4 MG/DL Sodium Level 144 MEQ/L Potassium Level 4.2 MEQ/L Chloride Level 107 MEQ/L Carbon Dioxide Level 28.3 MEQ/L Anion Gap 9 MEQ/L Estimat Glomerular Filtration Rate 86 ML/MIN Thyroid Stimulating Hormone 3rd Gen 1.030 uIU/ML Human Chorionic Gonadotropin, Quant LESS THAN 1 MIU/ML Salicylates Level 2.8 MG/DL Urine Opiates Screen NEG Acetaminophen Level LESS THAN 2.0 MCG/ML Urine Barbiturates Screen NEG Urine Amphetamines Screen NEG Urine Benzodiazepines Screen POS Urine Cocaine Screen NEG Urine Cannabinoids Screen NEG Ethyl Alcohol Level 404 MG/DL MDM Medical Record Reviewed: Yes Supervised Visit with ROXANNE: No Narrative Course 32-year-old female presented to the emergency room previously under a Fuentes act for erratic behavior. Patient was extremely intoxicated on arrival. She has history of alcohol abuse. She is monitored in the ED and medically cleared. She was seen by psychiatric nurse practitioner and Fuentes act was lifted. Patient is clinically sober and ambulating in a straight line in the [place]. She is alert and oriented 4. Patient is stable for outpatient follow-up. She was told to return for worsening symptoms. Diagnosis Primary Impression: Medical clearance for psychiatric admission Additional Impressions: Alcohol intoxication Alcohol abuse Referrals: Psychiatrist Patient Instructions: General Instructions, Alcohol Intoxication (ED), Alcohol Dependence (ED) Departure Forms: Tests/Procedures Additional Instruction: Follow-up per psychiatrist's recommendations. Follow-up with a primary care physician. Return to the emergency room for worsening symptoms. Disposition: 01 DISCHARGE HOME Condition: Stable Elizabeth Hidalgo Jul 19, 2017 17:00
--- NOTE | 2017-07-19 17:08 | PD ---
History of Present Illness Chief Complaint: Psychiatric Symptoms Time Seen by Provider: 16:30 Travel History International Travel<30 Days: No Contact w/Intl Traveler<30days: No Known affected area: No Legal Status Legal Status: Fuentes Act Fuentes Act Signed By: Jorge Boles History of Present Illness: History of Present Illness 32-year-old white female with history of alcohol dependence who presents emergency department under Fuentes act by PD after family members called the police. The Fuentes act alleges that the patient took pills and wanted to kill herself as well as threatening to kill anyone who called 911. The patient was intoxicated when the Fuentes act was initiated and upon presentation to the ED her blood alcohol level was 404. The patient was combative, uncooperative, and required restraints due to her potential for harm to self and others. She did admit to the police that she had taken an unknown amount of pills as well as alcohol and cough syrup. Electronic medical record is reviewed. She has had multiple visits to the ED for alcohol related issue. No previous contact with [facility] psychiatry. Patient was monitored in secure environment and allowed to sober up clinically. No suicidality. The patient is seen in [facility]. She is clinically sober. Alert and oriented female dressed in [facility] and maintaining basic hygiene. Her speech is clear, logical and goal-directed. She presents no symptoms of withdrawal at this time. There is no evidence of any psychosis. There is no warner. No objective clinical symptoms of depression. She denies that she took any extra medication and states I need my medication so I wouldn't take extra because then I would be out of it. She denies that she had any intention of harming herself or that she was suicidal. She believes her family member called because she has such serious consequences from her excessive drinking that they were worried for her. The patient at this time presents no evidence of unstable mental illness and is requesting to be discharge. She does admit that she was drinking and that she relapsed a week ago. Fund of knowledge is average. Attention and concentration are adequate. PFSH Past Medical History Medical History: Unable to Obtain Hx Anticoagulant Therapy: No Anxiety: Yes Depression: Yes Cancer: Yes (CERVICAL) Cardiovascular Problems: Yes Chemotherapy: No Cerebrovascular Accident: No Diabetes: No Diminished Hearing: No Genitourinary: No Hepatitis: Yes Musculoskeletal: No Neurologic: No Psychiatric: Yes Respiratory: Yes (POST TRACH) Immunizations Current: Yes ?: Not : 1 Para: 1 Past Surgical History Surgical History: Unable to Obtain Pacemaker: No Other Surgery: Yes (BENIGN CERVICAL CANCER, HX TRACH JUNE 2014, HX OF PEG TUBE, JUNE 22) Psychiatric History Psychiatric History Hx Psychiatric Treatment: DENIES any previous. No history of suicide attempts. No history of self-injurious behavior. History of Inpatient Treatment: No Guns or firearms in home: No Social History Single female who lives with her boyfriend and her 15-year-old daughter. 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 Hx Alcohol Use: Yes ( states relapsed went to [facility] days out today 05/11/17) Hx Tobacco Use: Yes (1 PPD) Hx Substance Use: Yes Substance Use Type: Alcohol Hx of Substance Use Treatment: Yes Family Psychiatric History Mother with reported history of alcohol abuse Allergies-Medications (Allergen,Severity, Reaction): Coded Allergies: *MDRO Multi-Drug Resistant Organism (Verified Adverse Reaction, Unknown, ) MDR Pseudomonas and ESBL+ Klebsiella (KPC) in sputum 07/2014. ESBL+ Klebsiella (KPC) urine 06/2014. Reported Meds & Prescriptions Reported Meds & Active Scripts Active Zofran (Ondansetron HCl) 4 Mg Tab 4 Mg PO Q6HR PRN Reported Gabapentin 300 Mg Cap 300 Mg PO TID Tramadol (Tramadol HCl) 50 Mg Tab 50 Mg PO Q6H PRN Xanax (Alprazolam) 0.5 Mg Tab 0.5 Mg PO Q8H PRN Review of Systems Psychiatric: DENIES: Anxiety, Confusion, Mood changes, Depression, Hallucinations, Agitation, Suicidal Ideation, Homicidal Ideation, Delusions Except as stated in HPI: all other systems reviewed are Neg Mental Status Examination Appearance: Appropriate Consciousness: Alert Orientation: x4 Motor Activity: Normal gait Speech: Unremarkable Language: Adequate Fund of Knowledge: Adequate Attention and Concentration: Adequate Memory: Unremarkable Mood: Appropriate Affect: Appropriate Thought Process & Associations: Intact, Logical Thought Content: Appropriate Hallucination Type: None Delusion Type: None Suicidal Ideation: No Suicidal Plan: No Suicidal Intention: No Homicidal Ideation: No Homicidal Plan: No Homicidal Intention: No Insight: Fair Judgment: Impulsive MDM Medical Decision Making Medical Record Reviewed: Yes Assessment/Plan 32-year-old white female with history of alcohol dependence who presents emergency department under Fuentes act by PD after family members called the police. The Fuentes act alleges that the patient took pills and wanted to kill herself as well as threatening to kill anyone who called 911. The patient was intoxicated when the Fuentes act was initiated and upon presentation to the ED her blood alcohol level was 404. The patient was combative, uncooperative, and required restraints due to her potential for harm to self and others. She did admit to the police that she had taken an unknown amount of pills as well as alcohol and cough syrup. Patient was monitored in secure environment and allowed to sober up clinically. She was agitated and aggressive while she was intoxicated. This afternoon she is clinically sober. She has demonstrated no further behavioral concerns and no suicidality. She presents no evidence of unstable mental illness. She does admit to alcohol dependence with recent relapse. The patient denies that she took any extra medication and that most likely her family called the police due to their concerns for her a few when she is drinking. The patient does not appear to be interested at this time and further treatment for her alcohol dependence and she does state that she has been active in AA in the past. She does not meet criteria for Fuentes act therefore it would be lifted. She is counseled regarding abstinence from alcohol. Psychiatrically clear for discharge from the ED. Orders Orders Complete Blood Count With Diff (07/18/17 23:02) Comprehensive Metabolic Panel (07/18/17 23:02) Thyroid Stimulating Hormone (07/18/17 23:02) Oximetry (07/18/17 23:02) Iv Access Insert/Monitor (07/18/17 23:02) Ecg Monitoring (07/18/17 23:02) Beta Hcg (Quant/Titer) (07/18/17 23:02) Psych Screen (07/18/17 23:02) Drug Screen, Random Urine (07/18/17 23:02) Alcohol (Ethanol) (07/18/17 23:02) Salicylates (Aspirin) (07/18/17 23:02) Tylenol (Acetaminophen) (07/18/17 23:02) Sodium Chlor 0.9% 1000 Ml Inj (Ns 1000 M (07/18/17 23:15) Restraints Violent (07/18/17 23:17) Haloperidol Inj (Haldol Inj) (07/19/17 04:30) Diet Regular Basic (07/19/17 Breakfast) Lorazepam (Ativan) (07/19/17 11:30) Gabapentin (Neurontin) (07/19/17 13:00) Ondansetron Odt (Zofran Odt) (07/19/17 11:30) Results Vital Signs Date Time Temp Pulse Resp B/P (MAP) Pulse Ox O2 Delivery O2 Flow Rate FiO2 07/19/17 16:47 07/19/17 14:40 98.4 102 16 115/60 (78) 99 Room Air 07/19/17 12:57 95 16 112/58 (76) 98 Room Air 07/18/17 23:13 16 99 Room Air 07/18/17 23:07 98.7 83 16 133/67 (89) 99 Laboratory Tests Test 07/18/17 23:10 White Blood Count 13.6 Red Blood Count 4.84 Hemoglobin 15.0 Hematocrit 43.4 Mean Corpuscular Volume 89.8 Mean Corpuscular Hemoglobin 31.0 Mean Corpuscular Hemoglobin Concent 34.6 Red Cell Distribution Width 12.7 Platelet Count 364 Mean Platelet Volume 7.5 Neutrophils (%) (Auto) 55.3 Lymphocytes (%) (Auto) 40.0 Monocytes (%) (Auto) 3.7 Eosinophils (%) (Auto) 0.5 Basophils (%) (Auto) 0.5 Neutrophils # (Auto) 7.5 Lymphocytes # (Auto) 5.4 Monocytes # (Auto) 0.5 Eosinophils # (Auto) 0.1 Basophils # (Auto) 0.1 CBC Comment AUTO DIFF Differential Total Cells Counted 100 Neutrophils % (Manual) 67 Band Neutrophils % 1 Lymphocytes % 29 Monocytes % 3 Neutrophils # (Manual) 9.2 Differential Comment FINAL DIFF MANUAL Platelet Estimate NORMAL Platelet Morphology Comment NORMAL Red Cell Morphology Comment NORMAL Blood Urea Nitrogen 9 Creatinine 0.78 Random Glucose 90 Total Protein 7.6 Albumin 4.0 Calcium Level 8.2 Alkaline Phosphatase 77 Aspartate Amino Transf (AST/SGOT) 59 Alanine Aminotransferase (ALT/SGPT) 28 Total Bilirubin 0.4 Sodium Level 144 Potassium Level 4.2 Chloride Level 107 Carbon Dioxide Level 28.3 Anion Gap 9 Estimat Glomerular Filtration Rate 86 Thyroid Stimulating Hormone 3rd Gen 1.030 Human Chorionic Gonadotropin, Quant LESS THAN 1 Salicylates Level 2.8 Urine Opiates Screen NEG Acetaminophen Level LESS THAN 2.0 Urine Barbiturates Screen NEG Urine Amphetamines Screen NEG Urine Benzodiazepines Screen POS Urine Cocaine Screen NEG Urine Cannabinoids Screen NEG Ethyl Alcohol Level 404 Diagnosis Primary Impression: Alcohol dependence Psychiatrically Cleared: Yes Departure Forms: Tests/Procedures Patient Instructions: General Instructions, Alcohol Intoxication (ED), Alcohol Dependence (ED) Med/ Other Pt Specific Info: No Meds Exist/No RX given Disposition: 01 DISCHARGE HOME Condition: Stable Problem Qualifiers Primary Impression: Alcohol dependence Qualified Codes: F10.220 - Alcohol dependence with intoxication, uncomplicated Preeti Herrera [facility] Jul 19, 2017 17:08
== END 2017-07-19 17:01 | disposition home or self-care (01) ==
LOC: NEPD 22:52 → NEPJ 07-19 17:01
DX: F10.220 Alcohol dependence with intoxication, uncomplicated (principal); F17.200 Nicotine dependence, unspecified, uncomplicated; Y90.8 Blood alcohol level of 240 mg/100 ml or more; Z79.899 Other long term (current) drug therapy
CPT/HCPCS: 80053; 80307; 84443; 84702; 85007; 85027; 96360; 96372; 99285; J1630; J7030